=== PATIENT | female | born 1970 | race Caucasian/White ===

== ENCOUNTER 2018-03-16 04:22 | Emergency (ER) | payer OTHER ==
[~2018-03-16] VITALS: Ht 170.2 cm; Wt 127.0 kg
[2018-03-16] MEDS ORDERED: ATOR20 PO (04:39)
[2018-03-16] MEDS ORDERED: METO50 PO (04:39)
[2018-03-16] MEDS ORDERED: ALBU90OI INH (04:39)
[2018-03-16] MEDS ORDERED: ALPR1 (04:40)
[2018-03-16] MEDS ORDERED: LIDO700A20 TOP (06:21)
[2018-03-16] MEDS ORDERED: CYCL10 PO (06:21)
== END 2018-03-16 06:36 | disposition home or self-care (01) ==
LOC: ER 04:22
DX: M54.42 Lumbago with sciatica, left side (principal); M54.41 Lumbago with sciatica, right side; I10 Essential (primary) hypertension; E78.00 Pure hypercholesterolemia, unspecified; Z88.0 Allergy status to penicillin; Z88.2 Allergy status to sulfonamides; Z79.899 Other long term (current) drug therapy
CPT/HCPCS: 96372; 99283-25; J1170; J1885

== ENCOUNTER → 2018-12-25 | Outpatient (CLI) | payer OTHER ==
[~2018-12-25] MED LIST: ALBU90OI INH; ALPR1; ATOR20 PO; CYCL10 PO; LIDO700A20 TOP; METO50 PO
== END | disposition home or self-care (01) ==
LOC: LAB 12:10 → LAB SHORT 12:10
DX: N39.0 Urinary tract infection, site not specified (principal)
CPT/HCPCS: 87086; 87147

== ENCOUNTER → 2019-11-30 | Outpatient (CLI) | payer OTHER | END | disposition home or self-care (01) | LOC: OLS 13:27 → LAB SHORT 13:27 | DX: R39.15 Urgency of urination (principal) | CPT/HCPCS: 87086 ==